=== PATIENT | female | born 1990 | race Hispanic/Latino ===

== ENCOUNTER 2017-11-03 21:36 | Emergency (ER) | payer BC ==
[~2017-11-03] VITALS: Ht 157.5 cm; Wt 77.1 kg
[~2017-11-03 21:36] MED LIST: METF500T4 PO
--- NOTE | 2017-11-03 21:45 | NUR ---
ARRIVAL PT TAKEN TO ED 4 VIA W/C ACCOMPANIED BY . PLACED ON CP MONITOR AND TRIAGE DONE
[2017-11-03 21:54] VITALS: BP 118/68
[2017-11-03] MEDS ORDERED: NORCO 5MG PO STA (22:06)
[2017-11-03] MEDS ORDERED: NORCO 5MG PO ONE (22:11)
--- NOTE | 2017-11-03 22:12 | ER.PDOC ---
General Chief Complaint: Extremities Stated Complaint: R HIP PAIN Time seen by MD: 21:59 Source: patient Exam Limitations: no limitations History of Present Illness Initial Comments Problems with R knee, gives out. Caused fall 3 days ago. Cntinues pain R hip, R knee. Severity: mild, moderate Context: Unknown Loss of Consciousness: No Loss of Consciousness Allergies: Coded Allergies: guaifenesin (Verified Allergy, Severe, STOPS BREATHING, 11/03/17) MEDS Reported Medications Metformin Hcl (METFORMIN HCL) 500 Mg Tablet, 1000 MG PO BID, TABLET 08/08/16 Past Medical History Medical History: diabetes Surgical History: LMP (females 10-50): 1 month Social History Smoking: less than 1 pack/day Alcohol Use: rarely Drug Use: none Reviewed Nursing Reviewed: Vital Signs, Abn. Noted, Nursing Assessment Review of Systems Constitutional: no symptoms reported Ears, Nose, Mouth, Throat: no symptoms reported Respiratory: no symptoms reported Cardiovascular: no symptoms reported Musculoskeletal: see HPI Skin: no symptoms reported Psychiatric/Neurological: no symptoms reported All Other Systems: Reviewed and Negative Physical Exam General Appearance: Mild Distress Head: No Evidence of Injury Ears, Nose, Mouth, Throat: Hearing Grossly Normal, No Evidence of ENT Injury Neck: Non-Tender, Normal Alignment, Normal Inspection Cardiovascular/Respiratory: Regular Rate, Rhythm, No M/R/G, Normal Peripheral Pulses, Normal Breath Sounds, No Respiratory Distress Gastrointestinal: Normal Bowel Sounds, No Organomegaly Back: Normal Inspection Extremities: Other (Tender over R hip. Tender R knee. Guards ROM. No swelling or deformity.) Neurologic/Psychiatric: head of commission department II-XII NML as Tested, No Motor/Sensory Deficits, Oriented x 3 Skin: Normal Color, Warm/Dry Nirmal Coma Score Nirmal Total: 15 Results/Orders Results/Orders Laboratory Tests Test 11/03/17 22:15 Urine Collection Type CCMS Urine Color YELLOW (YELLOW) Urine Appearance CLEAR (CLEAR) Urine Bilirubin NEGATIVE MG/DL (NEGATIVE) Urine Ketones NEGATIVE (NEGATIVE) Urine Specific [place] 1.015 (1.005-1.035) Urine pH 6 (5.0-6.0) Urine Protein NEGATIVE (NEGATIVE) Urine Urobilinogen NORMAL (NEGATIVE) Urine Nitrate NEGATIVE (NEGATIVE) Urine Leukocyte Esterase NEGATIVE (NEGATIVE) Urine Blood NEGATIVE (NEGATIVE) Urine Glucose 1000 (NEGATIVE) Human Chorionic Gonadotropin, Quant < 5 mIU/mL Administered Medications Medications (Trade) Dose Ordered Sig/Ryann Route PRN Reason Start Time Stop Time Status Last Admin Dose Admin Acetaminophen/ Hydrocodone Bitart ([place] 5mg) 1 ea OT STAT PO 11/03/17 22:06 11/03/17 22:09 DC 11/03/17 22:15 Departure Time of Disposition: 23:56 Disposition: 01 HOME, SELF-CARE Impression: Primary Impression: Strain of hip Additional Impression: Knee strain Condition: Stable Patient Instructions: Hip Pointer (Iliac Crest Contusion)-SportsMed Referrals: PCP,UNKNOWN (PCP) PRIMARY CARE PROVIDER Additional Instructions: Ice to tender areas. Rest. Duration or Time Spent with Pa: 45 MICHELLE REDDING DO November 03, 2017 22:12
[2017-11-03 22:20] LABS: BILIRUBIN,URINE NEGATIVE (NEGATIVE); UROBILINOGEN,URINE NORMAL (NEGATIVE)
[2017-11-03 22:27] LABS: APPEARANCE,URINE CLEAR (CLEAR); UA COLOR YELLOW (YELLOW)
--- NOTE | 2017-11-03 23:34 | DIREP ---
PROCEDURE:XRAY HIP MIN 2VW-RT COMPARISON:None. INDICATIONS:injury, fall, rt hip pain FINDINGS: BONES:Normal. JOINTS:Normal. SOFT TISSUES:Normal. OTHER:No additional findings. CONCLUSION:Normal examination. Dictated by: Skip Ng M.D. on 11/03/2017 at 11:33 PM
--- NOTE | 2017-11-03 23:36 | DIREP ---
PROCEDURE:XRAY KNEE 2 VWS-RT COMPARISON:None. INDICATIONS:injury, fall, rt knee pain FINDINGS: BONES:Normal. JOINTS:Normal, except for mild degenerative arthritis. SOFT TISSUES:Normal. OTHER:No additional findings. CONCLUSION:No fracture, subluxation, or joint effusion. Dictated by: Skip Ng M.D. on 11/03/2017 at 11:34 PM
[2017-11-04 00:15] VITALS: BP 118/68
== END 2017-11-04 00:14 | disposition home or self-care (01) ==
LOC: ER 21:36
DX: S76.011A Strain of muscle, fascia and tendon of right hip, initial encounter (principal); S86.911A Strain of unspecified muscle(s) and tendon(s) at lower leg level, right leg, initial encounter; E11.9 Type 2 diabetes mellitus without complications; F17.200 Nicotine dependence, unspecified, uncomplicated; Z88.8 Allergy status to other drugs, medicaments and biological substances; Z79.899 Other long term (current) drug therapy; W19.XXXA Unspecified fall, initial encounter; Y93.89 Activity, other specified; Y92.89 Other specified places as the place of occurrence of the external cause; Y99.8 Other external cause status
CPT/HCPCS: 36415; 73502; 73560; 81002; 84702; 99285